=== PATIENT | female | born 1970 | race Caucasian/White ===

== ENCOUNTER 2023-06-28 07:04 | Day surgery (SDC) | payer BC ==
[2023-06-25 11:45] LABS: BASOPHILS % (AUTO) 0.4 % (0.0-2.0); EOSINOPHILS % (AUTO) 0.5 % (0.0-4.0); HEMOGLOBIN 12.6 g/dL (12.0-16.0); LYMPHOCYTES # (AUTO) 0.9 K/uL (1.0-5.5); LYMPHOCYTES % (AUTO) 17.4 % (20.5-51.5); MEAN CORPUSCULAR HEMOGLOBIN 31 pg (27-31); MEAN CORPUSCULAR HGB CONC 32 % (32-36); MEAN CORPUSCULAR VOLUME 94 fL (79.0-98.0); MONOCYTES # (AUTO) 0.5 K/uL (0.0-1.0); MONOCYTES % (AUTO) 8.8 % (1.7-9.3); NEUTROPHILS # (AUTO) 3.9 K/uL (1.8-7.7); NEUTROPHILS % (AUTO) 72.9 % (40.0-70.0); PLATELET COUNT (AUTO) 254 K/uL (130-430); RED BLOOD CELL COUNT(AUTO) 4.14 MIL/uL (4.2-6.2); RED CELL DISTRIBUTION WIDTH 14.7 % (9.0-15.0); WHITE BLOOD COUNT (AUTO) 5.4 K/uL (4.8-10.8)
[2023-06-25 11:46] LABS: BILIRUBIN,URINE NEGATIVE (NEGATIVE); BLOOD, URINE 1+ (NEGATIVE); CLARITY/URINE CLEAR (CLEAR); COLOR,URINE YELLOW (YELLOW); GLUCOSE,URINE NEGATIVE (NEGATIVE); KETONES,URINE NEGATIVE (NEGATIVE); LEUKOCYTE ESTERASE ,URINE NEGATIVE (NEGATIVE); NITRITE, URINE NEGATIVE (NEGATIVE); PROTEIN URINE NEGATIVE (NEGATIVE); UROBILINOGEN,URINE 0.2 (0.2-1.0)
[2023-06-25 11:59] LABS: BACTERIA,URINE RARE /HPF (None Seen); WBC,URINE 0-3 /HPF (0-3)
[2023-06-25 12:05] LABS: ALBUMIN 4.1 g/dL (3.4-4.8); CALCIUM 9.3 mg/dL (8.4-11.0); CREATININE 0.71 mg/dL (0.55-1.30); POTASSIUM 3.9 mmol/L (3.5-5.1); TOTAL BILIRUBIN 0.4 mg/dL (0.0-1.0); TOTAL PROTEIN, SERUM 7.2 g/dL (6.4-8.3)
[~2023-06-28] VITALS: Ht 154.9 cm; Wt 55.3 kg
[2023-06-28] MEDS ORDERED: SEVOFLURANE 15 MIN GAS INH ONE (08:45)
[2023-06-28] MEDS ORDERED: NS 1000 ML IV.SOLN IV ONE (08:45)
[2023-06-28] MEDS ORDERED: LR 1,000 ML IV.SOLN IV ONE (08:45)
[2023-06-28] MEDS ORDERED: CEFAZOLIN 2 GM IVPB PREMIX 50 ML IV ONE (08:45)
[2023-06-28] MEDS ORDERED: PROPOFOL 200MG/ 20ML VIAL (DIPRIVAN) IV ONE (08:45)
[2023-06-28] MEDS ORDERED: NS IRRIG SOLN 1000 ML IR ONE (08:45)
[2023-06-28] MEDS ORDERED: ONDANSETRON HCL 4 MG/2 ML VIAL ONE ×2 (08:45→10:11)
[2023-06-28] MEDS ORDERED: MIDAZOLAM HCL 2 MG/2 ML VIAL (VERSED) ONE (08:54)
[2023-06-28] MEDS ORDERED: fentaNYL CITRATE/PF 100 MCG/2 ML AMP ONE (08:55)
[2023-06-28 09:21] VITALS: O2SAT 100
[2023-06-28] MEDS ORDERED: MEPERIDINE HCL/PF 25 MG/ML DISP.SYRIN IVP PRN (09:45)
[2023-06-28] MEDS ORDERED: OXYCODONE/ACETAMINOPHEN 5-325 TABLET PO PRN ×2 (10:00)
[2023-06-28] MEDS ORDERED: ONDANSETRON HCL 4 MG/2 ML VIAL IVP PRN (10:00)
[2023-06-28] MEDS ORDERED: HYDROcodone/ACETAMIN 5-325 MG TAB (NORCO/ VICODIN) PO PRN (10:00)
[2023-06-28] MEDS ORDERED: MEPERIDINE HCL/PF 25 MG/ML DISP.SYRIN ONE (10:11)
[2023-06-28] MEDS ORDERED: KETOROLAC TROMETHAMINE 60 MG/2 ML VIAL IM ONE (10:45)
[2023-06-28] MEDS ORDERED: KETOROLAC TROMETHAMINE 30 MG VIAL ONE (10:47)
[2023-06-28 13:56] VITALS: BP_SYST 130; PULSE 59; RESP 16
== END 2023-06-29 12:08 | disposition home or self-care (01) ==
LOC: SDS 07:04 → SMU 07:05 → SDS 06-29 12:08
PROVIDERS: ATTEND Specialist
DX: N92.6 Irregular menstruation, unspecified (principal); N95.1 Menopausal and female climacteric states; D25.0 Submucous leiomyoma of uterus; D25.1 Intramural leiomyoma of uterus; Z88.0 Allergy status to penicillin; Z88.1 Allergy status to other antibiotic agents; Z98.82 Breast implant status; Z79.899 Other long term (current) drug therapy
CPT/HCPCS: 80053; 81001; 84702; 85025; 87081; 36415; 93005; 71046; 81000; 58563; 88305; J0690; J1885 ×2; J3465; J2405; J2704; J3010; J2175; J7120; J7030; C1819; 81015